=== PATIENT | male | born 1990 | race Two or more races ===

== ENCOUNTER → 2017-10-23 | Outpatient (CLI) | payer BC ==
[2017-10-23 16:30] LABS: Basophils # (auto) 0 uL; Basophils % (auto) 0.9 % (0.0-2.0); Eosinophils # (auto) 0.1 uL; Eosinophils % (auto) 1.7 % (0.0-7.0); Hematocrit 48.4 % (41.0-53.0); Hemoglobin 16.1 g/dL (13.5-17.5); Lymphocytes # (auto) 1.1 uL; Lymphocytes % (auto) 20.4 % (10.0-50.0); Mean Corpuscular Hemoglobin 29.5 pg (28.0-32.0); Mean Corpuscular Hgb Conc. 33.3 g/dL (32.0-36.0); Mean Corpuscular Volume 88.6 fL (80.0-100.0); Monocytes # (auto) 0.5 uL; Monocytes % (auto) 8.8 % (0.0-12.0); Neutrophils # (auto) 3.6 uL; Neutrophils % (auto) 68.2 % (37.0-80.0); Nucleated Red Blood Cells % 0.3 %; Platelet Count (auto) 211 10^3/uL (140-450); Red Blood Cells 5.46 10^6/uL (4.5-5.90); Red Cell Distribution Width 13.5 % (11.8-14.3); White Blood Cell 5.3 10^3/uL (4.4-10.8)
[2017-10-23 17:09] LABS: Urine Bacteria NONE SEEN /hpf (None Seen); Urine Blood Negative /uL (Negative); Urine Mucus FEW (None Seen); Urine Specific Gravity 1.024 (1.001-1.035); Urine WBC <1 /hpf (0 - 3)
[2017-10-23 17:27] LABS: Albumin 4.6 g/dL (3.4-5.0); BUN/Creatinine Ratio 16.3; Bilirubin, Total 0.6 mg/dL (0.2-1.0); CRP High Sensitivity 0.06 mg/dL (< 0.3); Calcium 8.9 mg/dL (8.5-10.1); Potassium 3.7 mmol/L (3.5-5.1); Total Protein 8.2 g/dL (6.4-8.2)
== END | disposition home or self-care (01) ==
LOC: LAB 16:01
PROVIDERS: ATTEND Internal Medicine Gastroenterology
DX: R10.84 Generalized abdominal pain (principal)
CPT/HCPCS: 36415; 80053; 81001; 82270; 82784; 83036; 83516; 84443; 85025; 86141; 86255

== ENCOUNTER → 2018-02-18 | Outpatient (CLI) | payer BC | END | disposition home or self-care (01) | LOC: LAB 14:28 | PROVIDERS: ATTEND Nurse Practitioner | DX: R10.84 Generalized abdominal pain (principal) | CPT/HCPCS: 36415; 82565; 84520 ==

== ENCOUNTER → 2018-03-20 | Outpatient (CLI) | payer BC ==
[2018-03-20 14:49] LABS: Urine Bacteria NONE SEEN /hpf (None Seen); Urine Blood Negative /uL (Negative); Urine Mucus FEW (None Seen); Urine Specific Gravity 1.017 (1.001-1.035); Urine WBC <1 /hpf (0 - 3)
[2018-03-20 14:55] LABS: Basophils # (auto) 0 uL; Basophils % (auto) 1.1 % (0.0-2.0); Eosinophils # (auto) 0.1 uL; Eosinophils % (auto) 2.4 % (0.0-7.0); Hematocrit 47.1 % (41.0-53.0); Hemoglobin 16.3 g/dL (13.5-17.5); Lymphocytes # (auto) 1.2 uL; Mean Corpuscular Hemoglobin 29.9 pg (28.0-32.0); Mean Corpuscular Hgb Conc. 34.5 g/dL (32.0-36.0); Mean Corpuscular Volume 86.7 fL (80.0-100.0); Monocytes # (auto) 0.5 uL; Neutrophils # (auto) 2.4 uL; Neutrophils % (auto) 57.5 % (37.0-80.0); Nucleated Red Blood Cells % 0.1 %; Platelet Count (auto) 220 10^3/uL (140-450); Red Blood Cells 5.43 10^6/uL (4.5-5.90); Red Cell Distribution Width 13.5 % (11.8-14.3); White Blood Cell 4.1 10^3/uL (4.4-10.8)
[2018-03-20 15:17] LABS: Albumin 4.6 g/dL (3.4-5.0); BUN/Creatinine Ratio 8.6; Bilirubin, Total 0.4 mg/dL (0.2-1.0); Calcium 9.5 mg/dL (8.5-10.1); Potassium 3.9 mmol/L (3.5-5.1)
== END | disposition home or self-care (01) ==
LOC: LAB 14:21
PROVIDERS: ATTEND Nurse Practitioner
DX: R11.0 Nausea (principal)
CPT/HCPCS: 36415; 80053; 81001; 82043; 82150; 82306; 83036; 83690; 84443; 85025

== ENCOUNTER 2018-11-03 16:42 | Emergency (ER) | payer SELFPAY ==
[~2018-11-03] VITALS: Ht 177.8 cm; Wt 77.1 kg
[2018-11-03 18:43] LABS: Basophils # (auto) 0 uL; Basophils % (auto) 0.4 % (0.0-2.0); Eosinophils # (auto) 0 uL; Eosinophils % (auto) 0.4 % (0.0-7.0); Hematocrit 47.3 % (41.0-53.0); Hemoglobin 16.4 g/dL (13.5-17.5); Lymphocytes # (auto) 1.3 uL; Lymphocytes % (auto) 17.5 % (10.0-50.0); Mean Corpuscular Hemoglobin 30.5 pg (28.0-32.0); Mean Corpuscular Hgb Conc. 34.8 g/dL (32.0-36.0); Mean Corpuscular Volume 87.8 fL (80.0-100.0); Monocytes # (auto) 0.4 uL; Monocytes % (auto) 5.9 % (0.0-12.0); Neutrophils # (auto) 5.4 uL; Neutrophils % (auto) 75.8 % (37.0-80.0); Platelet Count (auto) 234 10^3/uL (140-450); Red Blood Cells 5.39 10^6/uL (4.5-5.90); Red Cell Distribution Width 13.3 % (11.8-14.3); White Blood Cell 7.2 10^3/uL (4.4-10.8)
[2018-11-03 19:17] LABS: Alanine Aminotransferase 26 U/L (16-61); Albumin 4.7 g/dL (3.4-5.0); Anion Gap 7 (5-15); Aspartate Aminotransferase 13 U/L (15-37); BUN/Creatinine Ratio 9.7; Blood Urea Nitrogen 9 mg/dL (7-18); Calcium 9.2 mg/dL (8.5-10.1); Carbon Dioxide 28 mmol/L (21-32); Chloride 105 mmol/L (98-107); GFR African American 126 mL/min; GFR Non-African American 104 mL/min; Glucose 96 mg/dL (74-106); Magnesium 2.1 mg/dL (1.6-2.6); Potassium 3.5 mmol/L (3.5-5.1); Sodium 140 mmol/L (136-145)
[2018-11-03 19:22] LABS: Alkaline Phosphatase 84 U/L (45-117); Bilirubin, Total 0.5 mg/dL (0.2-1.0)
[2018-11-04 00:39] LABS: Urine WBC None Seen /hpf (0 - 3)
[2018-11-04 00:48] LABS: Urine Bacteria NONE SEEN /hpf (None Seen); Urine Blood Negative /uL (Negative); Urine Specific Gravity 1.014 (1.001-1.035)
[2018-11-04] MEDS ORDERED: HYDROcodone-ACET 5/325MG TAB PO ONE (01:00)
[2018-11-04 01:01] LABS: Alcohol, Urine < 3.0 mg/dL (0-5); Amphetamine Screen, Urine NEGATIVE (NEGATIVE); Barbiturate Scree,Urine NEGATIVE (NEGATIVE); Benzodiazephine Screen, Urine NEGATIVE (NEGATIVE); Cannabinoid Screen, Urine NEGATIVE (NEGATIVE); Cocaine Screen, Urine NEGATIVE (NEGATIVE); Opiate Scree,Urine NEGATIVE (NEGATIVE); Phencyclidine Screen, Urine NEGATIVE (NEGATIVE)
[2018-11-04 01:30] LABS: INR 1.01 (0.9-1.15)
[2018-11-04 01:58] VITALS: BP 125/66
== END 2018-11-04 02:03 | disposition home or self-care (01) ==
LOC: ER 16:47
DX: R09.1 Pleurisy (principal); I10 Essential (primary) hypertension
CPT/HCPCS: 36415; 71046; 80053; 80307; 81001; 83735; 84484; 85025; 85379; 85610; 85730; 93005

== ENCOUNTER → 2018-11-15 | Outpatient (CLI) | payer SELFPAY ==
[2018-11-15 14:06] LABS: Hematocrit 46.1 % (41.0-53.0); Hemoglobin 15.8 g/dL (13.5-17.5)
== END | disposition home or self-care (01) ==
LOC: LAB 13:43
PROVIDERS: ATTEND Internal Medicine
DX: D64.9 Anemia, unspecified (principal)
CPT/HCPCS: 36415; 84443; 85014; 85018

== ENCOUNTER 2019-06-30 12:38 | Emergency (ER) | payer MEDICAID, OTHER ==
[~2019-06-30] VITALS: Ht 177.8 cm; Wt 64.9 kg
[2019-06-30] MEDS ORDERED: ASPirin 81 mg TAB PO ONE (12:45)
[2019-06-30 14:09] LABS: Basophils # (auto) 0 uL; Basophils % (auto) 0.5 % (0.0-2.0); Eosinophils # (auto) 0.2 uL; Eosinophils % (auto) 2.5 % (0.0-7.0); Hematocrit 48.6 % (41.0-53.0); Hemoglobin 16.6 g/dL (13.5-17.5); Lymphocytes # (auto) 1.2 uL; Lymphocytes % (auto) 19.8 % (10.0-50.0); Mean Corpuscular Hemoglobin 29.9 pg (28.0-32.0); Mean Corpuscular Hgb Conc. 34.2 g/dL (32.0-36.0); Mean Corpuscular Volume 87.3 fL (80.0-100.0); Monocytes # (auto) 0.5 uL; Monocytes % (auto) 8.2 % (0.0-12.0); Neutrophils # (auto) 4.3 uL; Nucleated Red Blood Cells % 0.1 %; Platelet Count (auto) 247 10^3/uL (140-450); Red Blood Cells 5.57 10^6/uL (4.5-5.90); Red Cell Distribution Width 13.9 % (11.8-14.3); White Blood Cell 6.2 10^3/uL (4.4-10.8)
[2019-06-30 14:23] LABS: Albumin 5.1 g/dL (3.4-5.0); Anion Gap 11 (5-15); Blood Urea Nitrogen 11 mg/dL (7-18); Calcium 9.4 mg/dL (8.5-10.1); Carbon Dioxide 25 mmol/L (21-32); Chloride 97 mmol/L (98-107); Glucose 85 mg/dL (74-106); Magnesium 2.1 mg/dL (1.6-2.6); Potassium 4.1 mmol/L (3.5-5.1); Sodium 133 mmol/L (136-145)
[2019-06-30 14:25] LABS: Alanine Aminotransferase 26 U/L (16-61); Aspartate Aminotransferase 20 U/L (15-37); BUN/Creatinine Ratio 10.3; GFR African American 107 mL/min; GFR Non-African American 88 mL/min
[2019-06-30 14:30] LABS: Alkaline Phosphatase 93 U/L (45-117); Bilirubin, Total 1.1 mg/dL (0.2-1.0); Total Protein 8.6 g/dL (6.4-8.2)
[2019-06-30 17:12] LABS: Amphetamine Screen, Urine NEGATIVE (NEGATIVE); Barbiturate Scree,Urine NEGATIVE (NEGATIVE); Benzodiazephine Screen, Urine NEGATIVE (NEGATIVE); Cannabinoid Screen, Urine NEGATIVE (NEGATIVE); Cocaine Screen, Urine NEGATIVE (NEGATIVE); Opiate Scree,Urine NEGATIVE (NEGATIVE); Phencyclidine Screen, Urine NEGATIVE (NEGATIVE)
[2019-06-30 18:04] LABS: Alcohol, Urine < 3.0 mg/dL (0-5)
[2019-06-30 18:44] VITALS: BP 121/59
== END 2019-06-30 19:03 | disposition home or self-care (01) ==
LOC: ER 12:38
DX: R07.89 Other chest pain (principal)
CPT/HCPCS: 36415; 71046; 80053; 80307; 83735; 84484; 85025; 93005

== ENCOUNTER 2021-02-18 17:24 | Emergency (ER) | payer MEDICAID ==
[~2021-02-18] VITALS: Ht 177.8 cm; Wt 77.1 kg
[2021-02-18 18:03] LABS: Urine WBC None Seen /hpf (0 - 3)
[2021-02-18 18:40] LABS: Urine Bacteria NONE SEEN /hpf (None Seen); Urine Blood Negative /uL (Negative); Urine Specific Gravity 1.019 (1.001-1.035)
[2021-02-18 20:56] VITALS: BP 135/76
== END 2021-02-18 21:40 | disposition home or self-care (01) ==
LOC: ER 17:24
DX: N50.811 Right testicular pain (principal); I10 Essential (primary) hypertension
CPT/HCPCS: 76870; 81001

== ENCOUNTER → 2022-01-18 | Outpatient (CLI) | payer MEDICAID ==
[~2022-01-18] VITALS: Ht 177.8 cm; Wt 72.6 kg
== END | disposition home or self-care (01) ==
LOC: Rad HDHVI 13:44
PROVIDERS: ATTEND Internal Medicine Cardiovascular Disease
DX: R00.0 Tachycardia, unspecified (principal); I10 Essential (primary) hypertension; K21.9 Gastro-esophageal reflux disease without esophagitis; F41.9 Anxiety disorder, unspecified; R00.2 Palpitations; R60.0 Localized edema; R42 Dizziness and giddiness
CPT/HCPCS: 93017

== ENCOUNTER 2022-04-24 13:00 | Emergency (ER) | payer MEDICAID ==
[~2022-04-24] VITALS: Ht 177.8 cm; Wt 78.4 kg
[2022-04-24 13:56] LABS: Basophils # (auto) 0 10 ^3/uL (0-0.2); Basophils % (auto) 0.2 % (0.0-2.0); Eosinophils # (auto) 0 10 ^3/uL (0-0.8); Eosinophils % (auto) 0.6 % (0.0-7.0); Hematocrit 43.5 % (41.0-53.0); Hemoglobin 14.9 g/dL (13.5-17.5); Lymphocytes # (auto) 0.6 10 ^3/uL (0.4-5.4); Lymphocytes % (auto) 7.1 % (10.0-50.0); Mean Corpuscular Hemoglobin 30.1 pg (28.0-32.0); Mean Corpuscular Hgb Conc. 34.4 g/dL (32.0-36.0); Mean Corpuscular Volume 87.5 fL (80.0-100.0); Monocytes # (auto) 0.4 10 ^3/uL (0-1.3); Monocytes % (auto) 4.8 % (0.0-12.0); Neutrophils # (auto) 7.5 10 ^3/uL (1.6-8.6); Neutrophils % (auto) 87.3 % (37.0-80.0); Red Blood Cells 4.96 10^6/uL (4.5-5.90); Red Cell Distribution Width 13.5 % (11.8-14.3); White Blood Cell 8.6 10^3/uL (4.4-10.8)
[2022-04-24 14:08] LABS: Albumin 4.1 g/dL (3.4-5.0); Calcium 9.1 mg/dL (8.5-10.1); Potassium 3.5 mmol/L (3.5-5.1)
[2022-04-24 14:10] LABS: BUN/Creatinine Ratio 13.9; Total Protein 7.9 g/dL (6.4-8.2)
[2022-04-24 14:12] LABS: Bilirubin, Total 0.5 mg/dL (0.2-1.0)
[2022-04-24 15:06] LABS: Urine Bacteria NONE SEEN /hpf (None Seen); Urine Blood Negative /uL (Negative); Urine Specific Gravity 1.015 (1.001-1.035); Urine WBC 1 /hpf (0 - 3)
[2022-04-24] MEDS ORDERED: IBUP800T27 PO (15:41)
[2022-04-24 16:27] VITALS: BP 124/75
== END 2022-04-24 16:38 | disposition home or self-care (01) ==
LOC: ER 13:00
DX: N43.3 Hydrocele, unspecified (principal); I10 Essential (primary) hypertension; E03.9 Hypothyroidism, unspecified; Z79.1 Long term (current) use of non-steroidal anti-inflammatories (NSAID)
CPT/HCPCS: 36415; 76870; 80053; 81001; 85025

== ENCOUNTER 2023-12-07 20:47 | Emergency (ER) | payer MEDICAID ==
[~2023-12-07] VITALS: Ht 177.8 cm; Wt 74.1 kg
[~2023-12-07 20:47] MED LIST: IBUP-1456 PO
[2023-12-07 21:47] LABS: Urine Bacteria NONE SEEN /hpf (None Seen); Urine Blood Negative /uL (Negative); Urine Clarity Clear (Clear); Urine Color Colorless (Yellow); Urine Protein, UAD Negative (Negative); Urine Specific Gravity 1.019 (1.001-1.035); Urine Urobilinogen Normal (Negative); Urine WBC <1 /hpf (0 - 3)
[2023-12-07 22:06] LABS: Basophils # (auto) 0 10 ^3/uL (0-0.2); Basophils % (auto) 0.6 % (0.0-2.0); Eosinophils # (auto) 0.2 10 ^3/uL (0-0.8); Eosinophils % (auto) 2.8 % (0.0-7.0); Hematocrit 46.9 % (41.0-53.0); Hemoglobin 15.4 g/dL (13.5-17.5); Lymphocytes # (auto) 1.3 10 ^3/uL (0.4-5.4); Mean Corpuscular Hemoglobin 28.8 pg (28.0-32.0); Mean Corpuscular Volume 87.4 fL (80.0-100.0); Monocytes # (auto) 0.9 10 ^3/uL (0-1.3); Monocytes % (auto) 10.9 % (0.0-12.0); Neutrophils # (auto) 5.4 10 ^3/uL (1.6-8.6); Neutrophils % (auto) 68.7 % (37.0-80.0); Nucleated Red Blood Cells % 0.1 %; Red Blood Cells 5.36 10^6/uL (4.5-5.90); Red Cell Distribution Width 13.7 % (11.8-14.3); White Blood Cell 7.9 10^3/uL (4.4-10.8)
[2023-12-07 22:24] LABS: Alanine Aminotransferase 16 U/L (7-40); Albumin 4.9 g/dL (3.2-4.8); Alkaline Phosphatase 101 U/L (46-116); Anion Gap 5 (5-15); Aspartate Aminotransferase 13 U/L (13-40); BUN/Creatinine Ratio 11.5 (10.0-20.0); Bilirubin, Total 0.3 mg/dL (0.2-1.0); Blood Urea Nitrogen 12 mg/dL (9-23); Calcium 9.9 mg/dL (8.5-10.1); Carbon Dioxide 29 mmol/L (20-30); Chloride 105 mmol/L (98-107); Glucose 102 mg/dL (74-106); Potassium 4.1 mmol/L (3.5-5.1); Sodium 139 mmol/L (136-145); Total Protein 7.4 g/dL (5.7-8.2)
[2023-12-07 23:29] VITALS: BP 127/88; PULSE 67; RESP 17; TEMP 99.1; O2SAT 96
== END 2023-12-07 23:31 | disposition home or self-care (01) ==
LOC: ER 20:47
DX: R53.1 Weakness (principal); I10 Essential (primary) hypertension; E03.9 Hypothyroidism, unspecified; Z79.1 Long term (current) use of non-steroidal anti-inflammatories (NSAID)
CPT/HCPCS: 36415; 80053; 81001; 85025

== ENCOUNTER 2025-06-24 19:25 | Emergency (ER) | payer MEDICAID ==
[~2025-06-24] VITALS: Ht 177.8 cm; Wt 99.7 kg
[~2025-06-24 19:25] MED LIST changes: +MAGIC MT; +METH4PAK PO
[2025-06-24 19:26] VITALS: BP 144/90; PULSE 106; RESP 18; TEMP 97.3; O2SAT 95
[2025-06-24] MEDS ORDERED: AMOX875T4 PO (21:41)
--- NOTE | 2025-06-24 21:41 | ED.PDOC ---
History of Present Illness(SKN HPI Comments 35-year-old male presents to ER with complaints of cat bite x1 day. Patient reports that he was bit by a kitten on his left 5th finger at 5:00 p.m. prior to arrival to ER. Denies any pain and reports that he immediately washed the area with antibacterial soaps/water. Notes he is unsure when his last tetanus shot was and denies any further symptoms/complaints Chief Complaint: Animal Bite Time Seen by MD: 19:31 Primary Care Provider: Jae History of Present Illness: Nurses Notes, Medications, Allergies Allergies: Coded Allergies: Doxycycline (Verified Allergy, Severe, 12/29/23) Home Meds Active Scripts Amoxicillin & Pot Clavulanate (Amoxicillin/Potassium Cla) 875 Mg Tab, 1 TAB PO BID for 7 Days, #14 TAB 0 Refills Prov:NESSA ARTHUR 06/24/25 Methylprednisolone (Medrol Dosepak) 4 Mg [place], 4 MG PO UD, #21 TAB UAD Prov:SELIN ANN [employer] COVERER 12/29/23 Alum & Mag Hydrox-Simethicone (Magic Mouthwash) 80 Ml Ss, 10 ML MT TID PRN, #400 ML Prov:SELIN ANNP 12/29/23 Ibuprofen (Ibuprofen) 800 Mg Tab, 1 TAB PO TID PRN, #30 TAB 0 Refills Prov:NESSA ARTHUR 04/24/22 Information Source: Patient Mode of Arrival: Ambulatory Past Medical History PAST MEDICAL HISTORY: Angina, Anxiety Past Medical History (Other): Lauryn's Sjogren's syndrome Surgical History: Denies all surgeries Family History Family History: Family hx of DM, Family hx of HTN Social History Smoker: Non-Smoker Alcohol: Occasionally Drugs: Denies Drug Use Lives In: Home Constitutional: denies: chills, diaphoresis, fatigue, fever, malaise, sweats, weakness, others EENTM: denies: blurred vision, double vision, ear bleeding, ear discharge, ear drainage, ear pain, ear ringing, eye pain, eye redness, hearing loss, mouth pa in, mouth swelling, nasal discharge, nose bleeding, nose congestion, nose pain, photophobia, tearing, throat pain, throat swelling, voice changes, others Respiratory: denies: cough, hemoptysis, orthopnea, SOB at rest, shortness of breath, SOB with excertion, stridor, wheezing, others Cardiovascular: denies: chest pain, dizzy spells, diaphoresis, Dyspnea on exertion, edema, irregular heart beat, left arm pain, lightheadedness, palpitations, PND, syncope, others Gastrointestinal: denies: abdomen distended, abdominal pain, blood streaked bowels, constipated, diarrhea, dysphagia, difficulty swallowing, hematemesis, melena, nausea, poor appetite, poor fluid intake, rectal bleeding, rectal pain, vomiting, others Genitourinary: denies: burning, dysuria, flank pain, frequency, hematuria, incontinence, penile discharge, penile sore, pain, testicle pain, testicle swelling, urgency, others Neurological: denies: dizziness, fainting, headache, left sided numbness, left sided weakness, numbness, paresthesia, pre-existing deficit, right sided numbness, right sided weakness, seizure, speech problems, tingling, tremors, weakness, others Musculoskeletal: denies: back pain, gout, joint pain, joint swelling, muscle pain, muscle stiffness, neck pain, others Integumetry: reports: others (As stated in HPI) Allergic/Immunocompromised: denies: Difficulty Healing, Frequent Infections, Hives, Itching, others Hematologic/Lymphatic: denies: anemia, blood clots, easy bleeding, easy bruising, swollen glands, others Endocrine: denies: excessive hunger, excessive sweating, excessive thirst, excessive urination, flushing, intolerance to cold, intolerance to heat, unexplained weight gain, unexplained weight loss, others Psychiatric: denies: anxiety, bipolar disorder, depression, hopeless, panic disorder, schizophrenia, sleepless, suicidal, others Physical Exam General Appearance: No Apparent Distress, Obese HEENT: PERRL/EOMI Neck: Full Range of Motion, Non-Tender, Normal Respiratory: Chest Non-Tender, Lungs Clear, No Accessory Muscle Use, No Respiratory Distress, Normal Breath Sounds Cardiovascular: No Murmur, No Gallop, Regular Rate/Rhythm Breast Exam: Deferred Gastrointestinal: NOT DONE Genitalia: Deferred Pelvic: Deferred Rectal: Deferred Extremities: Normal capillary refill, Normal range of motion Neurologic: Alert, policy intern II-XII nml as Tested, No Motor Deficits, Normal Affect, Normal Mood, No Sensory Deficits Cerebellar Function: Normal Reflexes: Normal Skin: Dry, Warm, Other (Minimal abrasions noted to left 5th finger without any signs of infection appreciated. No foreign body or any further skin changes noted. Patient able to fully move all fingers of left hand. Pulses intact) Peripheral Pulses: 2+ Radial (R), 2+ Radial (L), 2+ Brachial (R), 2+ Brachial (L) Lymphatic: No Adenopathy Was a procedure done? Was a procedure done?: No Sedation Sedation?: No Differential Diagnosis (INTG) Differential Diagnosis: Fracture, Neurovascular Injury Differential Diagnosis: Laceration, Retained Foreign Body X-Ray, Labs, Meds, VS Vital Signs Date Time Temp Pulse Resp B/P (MAP) Pulse Ox O2 Delivery O2 Flow Rate FiO2 06/24/25 21:40 Room Air* 0 21 06/24/25 19:26 97.3 106 18 144/90 95 97.3 Current Medications Medications (Trade) Dose Ordered Sig/Ed Route Start Time Stop Time Status Last Admin Diphtheria/ Tetanus/Acell Pertussis (Boostrix T-Dap) 0.5 ml ONCE ONCE IM 06/24/25 21:45 06/24/25 21:46 DC 06/24/25 21:49 Tdap 0.5 mL IM ordered Wound care/cleaning discussed and advised Advised to follow up with PCP in 1-2 days Patient verbalized understanding and agreeable with current plan of care Advised to return to ER immediately if symptoms worsen Time of 1ST Reevaluation: 21:24 Reevaluation 1ST: N/A Patient Education/Counseling: Diagnosis, Treatment, Prognosis, Need For Follow Up Family Education/Counseling: No Family Present SEPSIS Sepsis Screen Date sepsis recognized/suspect: Jun 24, 2025 Time Sepsis recognized/suspect: 1926 Recent Procedure: No On Antibiotic Therapy: No Respiratory Rate >20: No Heart Rate >90: Yes Temp<36 C (96.8 F) or >38.3 C: No SBP <90 or MAP <65 mmHG: No New Acute Mental Status Change: No Is the patient on CPAP, BIPAP,: No Vital Signs Date Time Temp Pulse Resp B/P (MAP) Pulse Ox O2 Delivery O2 Flow Rate FiO2 06/24/25 21:40 Room Air* 0 21 06/24/25 19:26 97.3 106 18 144/90 95 97.3 Medications Medications Dose Ordered Sig/Ed Route Start Time Stop Time Status Last Admin Dose Admin Diphtheria/ Tetanus/Acell Pertussis 0.5 ml ONCE ONCE IM 06/24/25 21:45 06/24/25 21:46 DC 06/24/25 21:49 Departure 1 Departure Time of Disposition: 21:40 Impression: Primary Impression: Cat bite of finger Qualified Codes: S61.259A - Open bite of unspecified finger without damage to nail, initial encounter; W55.01XA - Bitten by cat, initial encounter Disposition: HOME / SELF CARE / HOMELESS Condition: Stable e-Prescriptions Amoxicillin & Pot Clavulanate (Amoxicillin/Potassium Cla) 875 Mg Tab 1 TAB PO BID for 7 Days, #14 TAB 0 Refills Prov: NESSA ARTHUR 06/24/25 Discharged With: Self Critical Care Note Critical Care Time?: No Stability Stability form required: No Heart Score Heart Score: Heart Score Response (Comments) Value History N/A 0 EKG N/A 0 Age N/A 0 Risk Factors N/A 0 Troponin N/A 0 Total 0 NESSA ARTHUR Jun 24, 2025 21:41
[2025-06-24] MEDS: TETANUS-DIPTH-ACEL PERTUSSIS 0.5ML SYR Tdap IM ONE (21:49)
== END 2025-06-24 21:53 | disposition home or self-care (01) ==
LOC: ER 19:25
DX: S60.417A Abrasion of left little finger, initial encounter (principal); Z88.1 Allergy status to other antibiotic agents; Z79.899 Other long term (current) drug therapy; W55.01XA Bitten by cat, initial encounter; Y93.89 Activity, other specified; Y92.89 Other specified places as the place of occurrence of the external cause; Y99.8 Other external cause status
CPT/HCPCS: 90471; 90715